=== PATIENT | male | born 1950 | race Caucasian/White ===

== ENCOUNTER 2020-03-24 15:00 | Outpatient (CLI) | payer MEDICARE | END 2020-03-24 23:59 | disposition home or self-care (01) | LOC: ROC 15:00 | PROVIDERS: ATTEND Radiology Radiation Oncology | DX: C43.59 Malignant melanoma of other part of trunk (principal) | CPT/HCPCS: G0463 ==

== ENCOUNTER → 2020-06-17 | Outpatient (CLI) | payer MEDICARE | END | disposition home or self-care (01) | LOC: ROC 08:53 | PROVIDERS: ATTEND Radiology Radiation Oncology | DX: C43.59 Malignant melanoma of other part of trunk (principal) | CPT/HCPCS: G0463 ==

== ENCOUNTER → 2020-06-24 | Outpatient (CLI) | payer MEDICARE ==
[~2020-06-24] MED LIST: GADOTERATE 10 MMOL/20 ML SYR ONE
== END | disposition home or self-care (01) ==
LOC: CFH 13:32
PROVIDERS: ATTEND Radiology Radiation Oncology
DX: C43.59 Malignant melanoma of other part of trunk (principal); N28.1 Cyst of kidney, acquired; E27.8 Other specified disorders of adrenal gland
CPT/HCPCS: 74183; A9575